=== PATIENT | male | born 2000 | race Caucasian/White ===

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

== ENCOUNTER → 2020-01-01 10:19 | Outpatient (CLI) | payer OTHER, MEDICAID, SELFPAY ==
[2020-01-03 02:09] LABS: COVID19 Sendout Not Detected (Not Detected)
== END ==
PROVIDERS: PCP Family Medicine; Visit Provider Family Medicine
DX: Z11.59 Encounter for screening for other viral diseases (principal)
CPT/HCPCS: 87635

== ENCOUNTER → 2021-02-02 08:55 | Outpatient (CLI) | payer OTHER, MEDICAID, SELFPAY ==
[2021-02-02] MEDS: COVID-19 VACC, Ad26(JANSSEN)/PF 0.5 ML IM (09:04)
== END ==
PROVIDERS: Visit Provider Internal Medicine
DX: Z23 Encounter for immunization (principal)
CPT/HCPCS: 0031A; 91303